=== PATIENT | male | born 1950 | race Caucasian/White ===

== ENCOUNTER 2017-01-12 17:01 | Outpatient (CLI) | payer MEDICARE | END 2017-01-12 17:02 | disposition home or self-care (01) | DX: E11.9 Type 2 diabetes mellitus without complications (principal); I10 Essential (primary) hypertension; Z12.5 Encounter for screening for malignant neoplasm of prostate; E78.9 Disorder of lipoprotein metabolism, unspecified; F32.9 Major depressive disorder, single episode, unspecified | CPT/HCPCS: 36415; 80053; 80061; 83036; G0103 ==

== ENCOUNTER 2018-04-02 10:57 | Outpatient (CLI) | payer MEDICARE ==
[2018-04-02 19:29] LABS: ALBUMIN 4.1 g/dL (3.2-5.5); ALBUMIN/GLOBULIN RATIO 1.5 (1.0-2.2); BILIRUBIN,TOTAL 0.8 mg/dL (0.2-1.0); CALCIUM 9.2 mg/dL (8.5-10.3); TOTAL PROTEIN 6.8 g/dL (6.7-8.2)
[2018-04-02 19:55] LABS: HB2 TOTAL 15.5 g/dL; HEMOGLOBIN A1C 0.86 g/dL; HEMOGLOBIN A1C % 7.2 % (4.6-6.2)
== END 2018-04-02 10:58 | disposition home or self-care (01) ==
LOC: LAB.WCP 10:57
PROVIDERS: ATTEND Family Medicine
DX: N40.1 Benign prostatic hyperplasia with lower urinary tract symptoms (principal); E11.9 Type 2 diabetes mellitus without complications
CPT/HCPCS: 36415; 80053; 82043; 83036

== ENCOUNTER 2018-12-24 08:00 | Outpatient (CLI) | payer MEDICARE ==
[2018-12-24 13:27] LABS: ALBUMIN 3.9 g/dL (3.2-5.5); ALBUMIN/GLOBULIN RATIO 1.4 (1.0-2.2); ALKALINE PHOSPHATASE 43 IU/L (42-121); ALT ALANINE AMINOTRANSFERASE 25 IU/L (10-60); AST ASPARTATE AMINOTRANSFERASE 22 IU/L (10-42); BILIRUBIN,TOTAL 0.6 mg/dL (0.2-1.0); BUN - BLOOD UREA NITROGEN 19 mg/dL (6-20); CALCIUM 8.7 mg/dL (8.5-10.3); CARBON DIOXIDE - CO2 23 mmol/L (21-32); CHLORIDE 107 mmol/L (101-111); CHOLESTEROL 116 mg/dL; CREATININE 0.9 mg/dL (0.6-1.2); GFR - MDRD 84 (>89); GLUCOSE 151 mg/dL (70-100); HDL CHOLESTEROL 29 mg/dL; SODIUM 139 mmol/L (135-145); TOTAL PROTEIN 6.6 g/dL (6.7-8.2)
[2018-12-24 13:34] LABS: HEMOGLOBIN A1C 0.84 g/dL
[2018-12-24 13:49] LABS: LDL CHOLESTEROL,DIRECT 58 mg/dL
== END 2018-12-24 23:59 | disposition home or self-care (01) ==
LOC: LAB.WCP 08:00
PROVIDERS: ATTEND Family Medicine
DX: E11.9 Type 2 diabetes mellitus without complications (principal); I10 Essential (primary) hypertension; E78.9 Disorder of lipoprotein metabolism, unspecified; Z12.5 Encounter for screening for malignant neoplasm of prostate
CPT/HCPCS: 36415; 80053; 80061; 83036; 83721; G0103; 84153

== ENCOUNTER 2019-09-19 04:39 | Emergency (ER) | payer MEDICARE ==
[2019-09-19 04:50] VITALS: BP 152/88
--- NOTE | 2019-09-19 05:01 | ED Physician Documentation ---
PD HPI HEENT - Stated complaint Stated Complaint: L EAR PX - Chief complaint Chief Complaint: Heent - History obtained from History obtained from: Patient - History of Present Illness Timing - onset: How many weeks ago (2) Timing - details: Gradual onset Pain level now: 4 Location: Left ear Improves: Medication (was improving with abx (see below)) Associated symptoms: Congestion. No: Fever, Cough Recently seen: Clinic - Additional information Additional information: c/o left ear pain since 09/07 . he had mild sinus congestion preceding this, but left ear pain developed 09/07 and saw PMD 09/08, rx cortisporin otic drops. this rx seemed to be helping and symptoms nearly resolved until few days ago when they rapidly returned. decreased hearing left ear with tinnitus. 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 HEENT: Tonsil/Adenoidectomy - Present Medications Home Medications: Ambulatory Orders Medication Instructions Recorded Confirmed Carvedilol 12.5 mg PO BID 10/03/14 08/27/16 Insulin Aspart (Vial) [NovoLOG] 20 unit SQ TID 10/03/14 08/27/16 Pioglitazone [Actos] 30 mg PO DAILY 10/03/14 08/28/16 Simvastatin 10 mg PO DAILY 10/03/14 08/27/16 metFORMIN [Glucophage] 1,000 mg PO BID 10/03/14 08/27/16 Aspirin [Aspir-Low] 81 mg PO DAILY 08/27/16 08/27/16 Insulin NPH Human [NovoLIN N] 15 unit SQ BID 08/27/16 08/28/16 Lisinopril 20 mg PO BID 08/27/16 08/27/16 Omeprazole [PriLOSEC] 20 mg PO DAILY 08/27/16 08/27/16 Glucosamine Sulfate 500 mg PO DAILY 08/28/16 08/28/16 Amox/Clav 875/125 [Augmentin] 1 each PO Q12H #14 tablet 09/19/19 Ciproflox/Dexameth Otic Drops 4 drops LEFTEAR BID #1 bottle 09/19/19 [Ciprodex] HYDROcod/ACETAM 5/325 [[place] 5/325] 1 - 2 ea PO Q6H PRN #15 tablet 09/19/19 - Allergies Allergies/Adverse Reactions: Allergies Allergy/AdvReac Type Severity Reaction Status Date / Time No Known Drug Allergies Allergy Verified 10/03/14 08:23 - Social History Does the pt smoke?: No Smoking Status: Never smoker Does the pt drink ETOH?: No Does the pt have substance abuse?: No - Immunizations Immunizations are current?: Yes PD ED PE NORMAL - Vitals Vital signs reviewed: Yes - General General: Alert and oriented X 3, No acute distress, Well developed/nourished - HEENT HEENT: Moist mucous membranes - Neck Neck: Supple, no meningeal sign PD ED PE EXPANDED - HEENT HEENT: L TM dull, L TM loss of landmarks, Other (mild left ear canal mild edema and erythema) Results - Vitals Vitals: Oxygen O2 Source Room air PD MEDICAL DECISION MAKING - ED course Complexity details: considered differential, d/w patient Departure - Departure Disposition: 01 Home, Self Care Clinical Impression: Otitis externa Qualifiers: Otitis externa type: swimmer's ear Chronicity: acute Laterality: left Qualified Code(s): H60.332 - Swimmer's ear, left ear Otitis media Qualifiers: Otitis media type: suppurative Chronicity: acute Laterality: left Recurrence: non-recurrent Spontaneous tympanic membrane rupture: without spontaneous rupture Qualified Code(s): H66.002 - Acute suppurative otitis media without spontaneous rupture of ear drum, left ear Condition: Good Instructions: ED Otitis Media Acute Adult, ED Otitis Externa Follow-Up: Dmitry Braun DO [Primary Care Provider] - Prescriptions: Amox/Clav 875/125 [Augmentin] 1 each PO Q12H #14 tablet Ciproflox/Dexameth Otic Drops [Ciprodex] 4 drops LEFTEAR BID #1 bottle HYDROcod/ACETAM 5/325 [[place] 5/325] 1 - 2 ea PO Q6H PRN #15 tablet PRN Reason: Pain Discharge Date/Time: 09/19/19 05:43
[2019-09-19] MEDS ORDERED: AMOX/CLAV 875 MG/125 MG TABLET PO STA (05:24)
[2019-09-19] MEDS ORDERED: CIPROFLOX/DEXAMETH OTIC DROPS LEFTEAR STA (05:24)
[2019-09-19] MEDS ORDERED: HYDROcod/ACET 5/325 Prepack 4 PO STA (05:25)
== END 2019-09-19 05:43 | disposition home or self-care (01) ==
LOC: ED 04:39
DX: H66.002 Acute suppurative otitis media without spontaneous rupture of ear drum, left ear (principal); H60.332 Swimmer's ear, left ear; I10 Essential (primary) hypertension; E11.9 Type 2 diabetes mellitus without complications; Z79.4 Long term (current) use of insulin; Z79.82 Long term (current) use of aspirin
CPT/HCPCS: 99282; 99283; A9270

== ENCOUNTER 2019-10-04 12:17 | Emergency (ER) | payer MEDICARE ==
--- NOTE | 2019-10-04 14:40 | ED Physician Documentation ---
PD HPI HEENT - Stated complaint Stated Complaint: RT FACIAL NUMBNESS - Chief complaint Chief Complaint: Heent - History obtained from History obtained from: Patient (He started with an ear infection on [place], he was on Augmentin and Ciprodex. Over the last 7 to 10 days he has developed Left facial numbness and weakness. His ear pain still continues. No fevers.) Review of Systems Constitutional: denies: Fever, Chills Ears: reports: Ear pain Nose: denies: Rhinorrhea / runny nose, Congestion Throat: denies: Dental pain / toothache, Sore throat Cardiac: denies: Chest pain / pressure, Palpitations Respiratory: denies: Dyspnea, Cough PD PAST MEDICAL HISTORY - Past Medical History Cardiovascular: Hypertension, High cholesterol Respiratory: Sleep apnea Endocrine/Autoimmune: Type 2 diabetes GI: None : None HEENT: None Psych: Depression, Panic attacks Musculoskeletal: None Derm: Eczema - Past Surgical History Past Surgical History: Yes General: Hiatal hernia repair, 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 HEENT: Tonsil/Adenoidectomy - Present Medications Home Medications: Ambulatory Orders Medication Instructions Recorded Confirmed Carvedilol 12.5 mg PO BID 10/03/14 08/27/16 Insulin Aspart (Vial) [NovoLOG] 20 unit SQ TID 10/03/14 08/27/16 Pioglitazone [Actos] 30 mg PO DAILY 10/03/14 08/28/16 Simvastatin 10 mg PO DAILY 10/03/14 08/27/16 metFORMIN [Glucophage] 1,000 mg PO BID 10/03/14 08/27/16 Aspirin [Aspir-Low] 81 mg PO DAILY 08/27/16 08/27/16 Insulin NPH Human [NovoLIN N] 15 unit SQ BID 08/27/16 08/28/16 Lisinopril 20 mg PO BID 08/27/16 08/27/16 Omeprazole [PriLOSEC] 20 mg PO DAILY 08/27/16 08/27/16 Glucosamine Sulfate 500 mg PO DAILY 08/28/16 08/28/16 Amox/Clav 875/125 [Augmentin] 1 each PO Q12H #14 tablet 09/19/19 Ciproflox/Dexameth Otic Drops 4 drops LEFTEAR BID #1 bottle 09/19/19 [Ciprodex] HYDROcod/ACETAM 5/325 [[place] 5/325] 1 - 2 ea PO Q6H PRN #15 tablet 09/19/19 Cefdinir 300 mg PO BID #20 capsule 10/04/19 - Allergies Allergies/Adverse Reactions: Allergies Allergy/AdvReac Type Severity Reaction Status Date / Time No Known Drug Allergies Allergy Verified 10/04/19 12:40 - Social History Does the pt smoke?: No Smoking Status: Never smoker Does the pt drink ETOH?: No Does the pt have substance abuse?: No - Immunizations Immunizations are current?: Yes PD ED PE NORMAL - Vitals Vital signs reviewed: Yes - General General: Alert and oriented X 3, No acute distress - HEENT HEENT: PERRL, EOMI, Other (On examination he has a classic Goldberg's palsy that does not spare the forehead. There is no associated extraocular movement issue, diplopia. Uvular and soft palate rises normal. He has a terrible left otitis media with some hemotympanum 2. No tenderness anterior to the ear or over the mastoid. No skin changes.) - Neck Neck: Supple, no meningeal sign, No bony TTP - Neuro Neuro: Alert and oriented X 3, No motor deficit, No sensory deficit, Normal speech, Other (Normal strength and sensation throughout the extremities.) Results - Vitals Vitals: Vital Signs - 24 hr 10/04/19 10/04/19 12:36 14:48 Temperature 36.9 C Heart Rate 84 76 Respiratory 20 18 Rate Blood Pressure 163/79 H 150/86 H O2 Saturation 97 96 Oxygen O2 Source Room air PD MEDICAL DECISION MAKING - ED course ED course: 69-year-old gentleman presents with a Goldberg's palsy reactive to otitis media on the left, he has an appoint with ENT on the I will call them and try to move that up. Really no point given the time course to use antivirals or steroids. Discussed the case [facility] in [place], they will see in expedited fashion in follow-up. We discussed steroids, however up-to-date does not seem to recommend steroids or antivirals at this point. Departure - Departure Disposition: 01 Home, Self Care Clinical Impression: Left-sided Goldberg's palsy Otitis media Qualifiers: Otitis media type: suppurative Chronicity: acute Laterality: left Recurrence: recurrent Spontaneous tympanic membrane rupture: without spontaneous rupture Qualified Code(s): H66.005 - Acute suppurative otitis media without spontaneous rupture of ear drum, recurrent, left ear Condition: Fair Instructions: ED [place] Palsy, ED Otitis Media Acute Adult Prescriptions: Cefdinir 300 mg PO BID #20 capsule Comments: Call the ENT office to see if you can move up your appointment, return for new or worsening symptoms. Discharge Date/Time: 10/04/19 14:52
[2019-10-04 14:49] VITALS: BP 150/86
== END 2019-10-04 14:52 | disposition home or self-care (01) ==
LOC: ED 12:17
DX: G51.0 Bell's palsy (principal); H66.005 Acute suppurative otitis media without spontaneous rupture of ear drum, recurrent, left ear; H73.892 Other specified disorders of tympanic membrane, left ear; I10 Essential (primary) hypertension; E11.9 Type 2 diabetes mellitus without complications; Z79.4 Long term (current) use of insulin; Z79.82 Long term (current) use of aspirin
CPT/HCPCS: 99282; 99284

== ENCOUNTER 2019-11-21 14:31 | Outpatient (CLI) | payer MEDICARE ==
--- NOTE | 2019-11-22 06:30 | XRAY Report ---
Reason: LUMBAR RADICULOPATHY Procedure Date: 11/21/2019 Accession Number: [id number] / [id number] Procedure: XRN - Lumbar Spine 2 View CPT Code: Final Report FULL RESULT: EXAM: LUMBOSACRAL SPINE RADIOGRAPHY EXAM DATE: 11/21/2019 02:48 PM CLINICAL HISTORY: Lumbar radiculopathy. COMPARISONS: LUMBAR SPINE 2 VIEW 01/04/2018 8:28 AM. TECHNIQUE: 3 views. FINDINGS: Alignment: No significant scoliosis is appreciated. Retrolisthesis at L1-L2 measures 5 mm, at L2-L3 measures 6 mm, and L3-L4 measures 4 mm. These findings are stable. Bones: Five iic-oin-bsjbaoz lumbar vertebral bodies are present. No acute lumbar spine fracture is identified. Anterior projecting osteophytes are again seen at L1-L2, L2-L3, and L3-L4. Anterior sclerotic endplate changes at L1-L2 are again demonstrated. Disks: Mild disk height loss is again seen at L1-L2 and L2-L3 with moderate disk height loss at L5-S1, stable. Facets: Mild facet arthropathy is noted at L5-S1. Sacroiliac Joints: Mild degenerative changes are seen in the bilateral sacroiliac joints. Soft Tissues: Normal. The visualized bowel gas pattern is normal. IMPRESSION: 1. No acute lumbar spine fracture. 2. Moderate multilevel degenerative changes appear stable compared to the lumbar spine radiographs from 01/04/2018. These findings are most prominent at L1-L2, L2-L3, and L5-S1. RADIA
== END 2019-11-21 14:32 | disposition home or self-care (01) ==
LOC: DI.N 14:31
PROVIDERS: ATTEND Family Medicine
DX: M51.36 Other intervertebral disc degeneration, lumbar region (principal); M51.37 Other intervertebral disc degeneration, lumbosacral region; M47.817 Spondylosis without myelopathy or radiculopathy, lumbosacral region; M43.16 Spondylolisthesis, lumbar region
CPT/HCPCS: 72100

== ENCOUNTER 2020-06-08 08:00 | Outpatient (CLI) | payer MEDICARE ==
[2020-06-08 11:55] LABS: BASOPHILS # (AUTO) 0.1 10^3/uL (0.0-0.1); BASOPHILS % (AUTO) 0.8 %; EOSINOPHILS # (AUTO) 0.3 10^3/uL (0.0-0.7); EOSINOPHILS % (AUTO) 4.2 %; HGB - HEMOGLOBIN 14.6 g/dL (14.0-18.0); LYMPHOCYTES # (AUTO) 2.2 10^3/uL (1.5-3.5); LYMPHOCYTES % (AUTO) 30.9 %; MEAN CORPUSCULAR HEMOGLOBIN 28.1 pg (27.0-31.0); MEAN CORPUSCULAR HGB CONC 30.6 g/dL (32.0-36.0); MEAN CORPUSCULAR VOLUME 91.9 fL (80.0-94.0); MEAN PLATELET VOLUME 10.1 fL (7.4-11.4); MONOCYTES # (AUTO) 0.6 10^3/uL (0.0-1.0); MONOCYTES % (AUTO) 8.6 %; NEUTROPHILS # (AUTO) 3.9 10^3/uL (1.5-6.6); NEUTROPHILS % (AUTO) 54.9 %; PLT - PLATELET COUNT 340 10^3/uL (130-450); RED BLOOD COUNT 5.19 10^6/uL (4.70-6.10); RED CELL DISTRIBUTION WIDTH 13.8 % (12.0-15.0); WHITE BLOOD COUNT 7.1 x10^3/uL (4.8-10.8)
[2020-06-08 12:07] LABS: ALBUMIN/GLOBULIN RATIO 1.5 (1.0-2.2); ALKALINE PHOSPHATASE 41 IU/L (42-121); ALT ALANINE AMINOTRANSFERASE 21 IU/L (10-60); AST ASPARTATE AMINOTRANSFERASE 17 IU/L (10-42); BILIRUBIN,TOTAL 0.7 mg/dL (0.2-1.0); BUN - BLOOD UREA NITROGEN 19 mg/dL (6-20); CALCIUM 8.9 mg/dL (8.5-10.3); CARBON DIOXIDE - CO2 23 mmol/L (21-32); CHLORIDE 106 mmol/L (101-111); CHOL/HDL RATIO 3.5 (<5.0); CHOLESTEROL 130 mg/dL; CREATININE 0.9 mg/dL (0.6-1.2); GLUCOSE 115 mg/dL (70-100); HDL CHOLESTEROL 37 mg/dL; LDL CHOLESTEROL,CALCULATED 61 mg/dL; LDL/HDL RATIO 1.6 (<3.6); SODIUM 140 mmol/L (135-145); TOTAL PROTEIN 6.6 g/dL (6.7-8.2); VLDL CHOLESTEROL 32 mg/dL
[2020-06-08 12:22] LABS: HEMOGLOBIN A1c% 6.9 % (4.27-6.07)
== END 2020-06-08 23:59 | disposition home or self-care (01) ==
LOC: LAB.WCP 08:00
PROVIDERS: ATTEND Family Medicine
DX: E11.9 Type 2 diabetes mellitus without complications (principal); E78.5 Hyperlipidemia, unspecified; F32.9 Major depressive disorder, single episode, unspecified; Z12.5 Encounter for screening for malignant neoplasm of prostate
CPT/HCPCS: 36415; 80053; 80061; 82043; 83036; 84443; 85025; G0103; 83721; 84153

== ENCOUNTER 2021-04-23 15:00 | Outpatient (CLI) | payer MEDICARE ==
--- NOTE | 2021-04-24 09:13 | XRAY Report ---
PROCEDURE: Lumbar Spine 2 View INDICATIONS: LUMBAR RADICULOPATHY TECHNIQUE: 3 views of the lumbar spine were acquired. COMPARISON: 11/21/2019. FINDINGS: Bones: 5 lgi-[id number] vertebrae are present. Mild scoliosis. Lumbar spine lordosis is somewhat ex aggerated. Small vertebral body osteophytes. Lower lumbar spine facet joint hypertrophy. Overall fin dings similar to 2020. No vertebral body compression fractures. No suspicious bony lesions. Soft tissues: Overlying bowel gas pattern is normal. No suspicious soft tissue calcifications. IMPRESSION: Mild scoliosis. Similar thlz-ko-aqwnytzn degenerative change. Reviewed by: Gustavo Castro MD on 04/24/2021 9:11 AM PDT Approved by: Gustavo Castro MD on 04/24/2021 9:11 AM PDT Station ID: [id number]
== END 2021-04-23 15:01 | disposition home or self-care (01) ==
LOC: DI.N 15:00
PROVIDERS: ATTEND Family Medicine
DX: M47.816 Spondylosis without myelopathy or radiculopathy, lumbar region (principal); M41.9 Scoliosis, unspecified

== ENCOUNTER 2021-10-18 12:40 | Outpatient (CLI) | payer MEDICARE ==
--- NOTE | 2021-10-18 17:27 | Ultrasound Report ---
PROCEDURE: Head or Neck Soft Tissue INDICATIONS: NONTOXIC MULTINODULAR GOITER TECHNIQUE: Real time scanning was performed of the neck region of interest, with image documentation . COMPARISON: None. FINDINGS: The right thyroid lobe measures 5.3 x 1.8 x 1.8 cm. No nodules in the right thyroid lobe. The left thyroid lobe measures 5.0 x 2.3 x 1.8 cm. The left thyroid midpole has a 1.7 x 1.5 x 1.4 cm septated cyst with smooth margins and no echogenic foci. 2. The isthmus measures 0.4 cm. IMPRESSION: 1. 1.7 x 1.5 x 1.4 cm TI-RADS 2 (not suspicious) nodule in the left midpole. 2. No other nodules identified. Reviewed by: Harry Ma on 10/18/2021 5:26 PM PST Approved by: Harry Ma on 10/18/2021 5:26 PM PST Station ID: [id number]
== END 2021-10-18 12:41 | disposition home or self-care (01) ==
LOC: DI 12:40
PROVIDERS: ATTEND Internal Medicine
DX: E04.2 Nontoxic multinodular goiter (principal)

== ENCOUNTER 2023-12-23 10:27 | Outpatient (CLI) | payer MEDICARE | END 2023-12-23 10:28 | disposition home or self-care (01) | LOC: NS 10:27 | PROVIDERS: ATTEND Internal Medicine | DX: E11.40 Type 2 diabetes mellitus with diabetic neuropathy, unspecified (principal); Z71.3 Dietary counseling and surveillance; Z71.89 Other specified counseling | CPT/HCPCS: 97802 ==